=== PATIENT | male | born 1965 | race Caucasian/White ===

== ENCOUNTER 2016-12-11 05:00 | Emergency (ER) | payer SELFPAY ==
[~2016-12-11] VITALS: Ht 177.8 cm; Wt 83.9 kg
[2016-12-11 05:10] VITALS: BP 120/71
--- NOTE | 2016-12-11 05:25 | Emergency Room Report ---
History of Present Illness General Chief Complaint: Abdominal Pain Source: Patient Present Illness HPI This is a 51-year-old male with no past medical history. He presents with multiple complaints. His main complaint is that he is having dysuria. No hematuria. No discharge. Has been ongoing for 3 weeks. He said that he was told that he may have an STD from a female acquaintance. Was treated for bacterial infection. He also complaining of rectal bleeding. He had a bowel movement yesterday and noted blood in it. Denies any pain. Denies any nausea vomiting. Nothing made it better and nothing made it worse. Eating drinking without any difficulty. Allergies: Coded Allergies: Pork (Verified Allergy, Unknown, 12/11/16) Patient History Past Medical History: see triage record, old chart reviewed Past Surgical History: none Pertinent Family History: none Social History: Denies: smoking Immunizations: other Reviewed Nursing Documentation: PMH: Agreed, PSxH: Agreed Nursing Documentation-PMH Past Medical History: No Stated History Review of Systems Eye: Denies: blurred vision, eye pain ENT: Denies: ear pain, nose congestion, throat swelling Respiratory: Denies: cough, shortness of breath Cardiovascular: Denies: chest pain, palpitations Gastrointestinal: Denies: abdominal pain, diarrhea, nausea, vomiting Genitourinary: Reports: dysuria Musculoskeletal: Denies: back pain, joint pain Skin: Denies: rash Neurological: Denies: headache, numbness Endocrine: Denies: increased thirst, increased urine Hematologic/Lymphatic: Denies: easy bruising All Other Systems: negative except mentioned in HPI Physical Exam Vital Signs Date Time Temp Pulse Resp B/P Pulse Ox O2 Delivery O2 Flow Rate FiO2 12/11/16 05:04 100.4 128 20 115/69 97 Room Air vitals with low-grade fever and tachycardia Sp02 EP Interpretation: reviewed, normal General Appearance: well appearing, no apparent distress, alert Head: normocephalic, atraumatic Eyes: bilateral eye EOMI, bilateral eye PERRL ENT: hearing grossly normal, normal pharynx Neck: full range of motion, supple, no meningismus Respiratory: chest non-tender, lungs clear, normal breath sounds Cardiovascular #1: regular rate, rhythm - hr 102, no murmur Gastrointestinal: normal bowel sounds, non tender, no mass, no organomegaly, no bruit, non-distended Rectal: normal exam, normal rectal tone, heme negative stool Genitourinary: normal inspection, penis normal Musculoskeletal: back normal, gait/station normal, normal range of motion Neurologic: alert, oriented x3 Psychiatric: mood/affect normal Skin: warm/dry Medical Decision Making Diagnostic Impression: Primary Impression: Abdominal pain of unknown etiology Additional Impressions: Rectal bleeding Urethritis ER Course Patient presents with symptoms of an STD. Most likely Chlamydia. We will treat for gonorrhea also. His rectal bleeding is stable. Most likely internal hemorrhoid. On recheck he has no temperature and heart rate unremarkable. His abdomen exam is benign. We'll discharge home. Last Vital Signs Date Time Temp Pulse Resp B/P Pulse Ox O2 Delivery O2 Flow Rate FiO2 12/11/16 05:04 100.4 128 20 115/69 97 Room Air Status: improved Disposition: HOME, SELF-CARE Condition: Stable Referrals: NOT CHOSEN IPA/,REFERRING (PCP) Additional Instructions: followup with your Dr. in 2-3 days. Return if symptom worsen. LEDY HIGGINBOTHAM M.D. Dec 11, 2016 05:25
[2016-12-11] MEDS ORDERED: Azithromycin 250mg tab ORAL ONE (05:30)
[2016-12-11] MEDS ORDERED: Lidocaine 1% MPF 10mg/ml 5ml ONE ×2 (05:36→05:37)
[2016-12-11 06:00] VITALS: BP 120/71
== END 2016-12-11 06:00 | disposition home or self-care (01) ==
LOC: EMR 05:19
DX: R10.9 Unspecified abdominal pain (principal); K62.5 Hemorrhage of anus and rectum; N34.2 Other urethritis; A54.9 Gonococcal infection, unspecified
CPT/HCPCS: 96372; 99283; J0696